=== PATIENT | female | born 1975 | race Caucasian/White ===

== ENCOUNTER 2017-07-20 17:03 | Emergency (ER) | payer OTHER ==
[~2017-07-20] VITALS: Ht 162.6 cm; Wt 127.0 kg
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
[2017-07-20] MEDS: diazePAM 5 MG TABLET PO ONE (17:40)
[2017-07-20] MEDS: KETOROLAC 60 MG/2 ML VIAL. IM ONE (17:41)
[2017-07-20] MEDS: ACETAMINOPHEN 325 MG TABLET PO ONE (17:41)
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
[2017-07-20 18:26] VITALS: BP 131/89
== END 2017-07-20 18:25 | disposition home or self-care (01) ==
LOC: ER 17:03
DX: S16.1XXA Strain of muscle, fascia and tendon at neck level, initial encounter (principal); R51 Headache; E11.9 Type 2 diabetes mellitus without complications; F17.210 Nicotine dependence, cigarettes, uncomplicated; Z88.5 Allergy status to narcotic agent; V49.9XXA Car occupant (driver) (passenger) injured in unspecified traffic accident, initial encounter; Y93.89 Activity, other specified; Y99.8 Other external cause status; Y92.488 Other paved roadways as the place of occurrence of the external cause
CPT/HCPCS: 70450; 72125; 96372; 99284; J1885

== ENCOUNTER 2017-10-07 15:52 | Emergency (ER) | payer OTHER ==
[~2017-10-07] VITALS: Ht 162.6 cm; Wt 127.0 kg
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
[2017-10-07] MEDS ORDERED: IPRATRPIUM/ALBUTEROL 0.5/2.5MG 3 ML NEBU. NEB ONE (16:45)
[2017-10-07] MEDS ORDERED: methylPREDNISolone SOD SUCC PF 125 MG/2 ML VIAL. IV ONE (16:50)
--- NOTE | 2017-10-07 17:03 | EKG ---
[address] [address] Test Date: 2017-10-07 Test Time: 16:21:59 Pat Name: JAMSHID WHITT Department: Room: Gender: F [employer] Assistant: : 1975 Requested By: TIFFANY CORONADO Order Number: [id number] Reading MD: Coy Pickens MD Measurements Intervals [place] Rate: 108 P: 26 [place]: 126 QRS: 10 QRSD: 80 T: 13 QT: 356 QTc: 481 Interpretive Statements SINUS TACHYCARDIA Electronically Signed On 10-08-2017 13:02:50 CDT by Coy Pickens MD
--- NOTE | 2017-10-07 17:10 | RAD ---
Indication: Short of air for one day. Technique: Two-view chest radiograph was obtained. No comparison is available. Findings: The lungs are clear. The cardiopulmonary silhouette is within normal limits. There is no pleural effusion. There are degenerative changes in the spine. Leads overlie the patient. Impression: No active pulmonary disease. Electronically signed by: Hector Oleary MD (10/07/2017 5:07 PM) [facility]
[2017-10-07 17:13] LABS: BASO # 0.1 x10^3/uL (0.0-0.2); BASO % 1 % (0-3); EOS # 0.3 x10^3/uL (0.0-0.7); EOS % 3 % (0-3); HEMATOCRIT 45.2 % (36.0-47.0); LYMPH # 2.4 x10^3/uL (1.0-4.8); LYMPH % 19 % (24-48); MEAN CORPUSCULAR HEMOGLOBIN 29 pg (25-35); MEAN CORPUSCULAR HGB CONC 33 g/dL (31-37); MEAN CORPUSCULAR VOLUME 86 fL (79-100); MONO # 0.7 x10^3/uL (0.0-1.1); MONO % 6 % (0-9); NEUT # 8.9 x10^3uL (1.8-7.7); NEUT % 72 % (31-73); PLATELET COUNT 326 x10^3/uL (140-400); RED BLOOD COUNT 5.25 x10^6/uL (3.50-5.40); RED CELL DISTRIBUTION WIDTH 13.8 % (11.5-14.5); WHITE BLOOD COUNT 12.4 x10^3/uL (4.0-11.0)
[2017-10-07 17:15] LABS: BILIRUBIN,URINE NEG (NEG); CLARITY,URINE CLEAR; COLOR,URINE YELLOW; GLUCOSE,URINE 500 mg/dL (NEG)
[2017-10-07 17:16] LABS: BACTERIA,URINE FEW /HPF (0-FEW); NITRITE,URINE NEG (NEG); RBC,URINE OCC /HPF (0-2); SQUAMOUS EPITHELIAL CELL,UR OCC /LPF; UROBILINOGEN,URINE 0.2 mg/dL (0.2 mg/dL); WBC,URINE OCC /HPF (0-4)
[2017-10-07 17:17] VITALS: BP 111/67
[2017-10-07 17:27] LABS: ALBUMIN 3.6 g/dL (3.4-5.0); ALBUMIN/GLOBULIN RATIO 0.9 (1.0-1.7); CALCIUM 8.8 mg/dL (8.5-10.1); CREATININE 0.7 mg/dL (0.6-1.0); GFR 92.7; TOTAL BILIRUBIN 0.3 mg/dL (0.2-1.0); TOTAL PROTEIN 7.4 g/dL (6.4-8.2)
[2017-10-07] MEDS ORDERED: LORazepam 2 MG/ML VIAL IV ONE (17:45)
[2017-10-07] MEDS ORDERED: ALBU8.5H8 INH (17:58)
[2017-10-07] MEDS ORDERED: AMOX1TAB61 PO (17:58)
[2017-10-07] MEDS ORDERED: METH4TAB2 PO (17:58)
[2017-10-07 18:07] LABS: BARBITURATES NEG (NEG); BENZODIAZEPINES NEG (NEG); CANNABINOIDS NEG (NEG); COCAINE NEG (NEG); METHADONE NEG (NEG); OPIATES NEG (NEG); PHENCYCLIDINE NEG (NEG)
[2017-10-07 18:08] LABS: AMPHETAMINE/METHAMPHETAMINE NEG (NEG)
[2017-10-07] MEDS ORDERED: AMOXICILLIN/K CLAV 875/125MG TABLET. PO ONE (18:15)
== END 2017-10-07 18:05 | disposition home or self-care (01) ==
LOC: ER 15:52
DX: R06.02 Shortness of breath (principal); R53.1 Weakness; E11.9 Type 2 diabetes mellitus without complications; E66.01 Morbid (severe) obesity due to excess calories; F17.210 Nicotine dependence, cigarettes, uncomplicated; Z68.42 Body mass index [BMI] 45.0-49.9, adult; Z88.5 Allergy status to narcotic agent
CPT/HCPCS: 36415; 71046; 80053; 80307; 81001; 81025; 83880; 84484; 85025; 85379; 93005; 94640; 96374; 96375; 99285; J2060; J2930; J7620; G0479

== ENCOUNTER 2019-12-08 02:13 | Emergency (ER) | payer OTHER ==
[~2019-12-08] VITALS: Ht 162.6 cm; Wt 124.2 kg
[~2019-12-08 02:13] MED LIST: ALBU2.5V8 INH; AMOX1TAB61 PO; METH4TAB2 PO
[2019-12-08 02:29] VITALS: BP 137/75
--- NOTE | 2019-12-08 02:54 | PHYS DOC ---
Past History Past Medical History: Diabetes Past Surgical History: Other Additional Past Surgical Histo: right roshan repair, right knee repair Smoking: Cigarettes, Less than 1pk/day Alcohol Use: Rarely Drug Use: None General Adult EDM: Chief Complaint: ALTERED MENTAL STATUS HPI: HPI: 44-year-old female presents via EMS with abdominal pain and vomiting. The patient states that she was "woke up from a deep sleep, went to the bathroom and had diarrhea for an hour straight". She states that the diarrhea is gotten better and the associated abdominal pain has improved. She has mild generalized pain. She states that she feels cold. EMS was told that the called for an ambulance because she was in the bathroom and not responding appropriately. Patient does not have a significant medical history except for diabetes. She denies measured fever. Review of Systems: Review of Systems: Constitutional: Chills Eyes: Denies change in visual acuity HENT: Denies nasal congestion or sore throat Respiratory: Denies cough or shortness of breath Cardiovascular: Denies chest pain or edema GI: Generalized abdominal pain, diarrhea : Denies dysuria Musculoskeletal: Denies back pain or joint pain Integument: Denies rash Neurologic: Denies headache, focal weakness or sensory changes Endocrine: Denies polyuria or polydipsia Lymphatic: Denies swollen glands Psychiatric: Denies depression or anxiety Heart Score: Risk Factors: Risk Factors: DM, Current or recent (<one month) smoker, HTN, HLP, family history of CAD, obesity. Risk Scores: Score 0 - 3: 2.5% MACE over next 6 weeks - Discharge Home Score 4 - 6: 20.3% MACE over next 6 weeks - Admit for Clinical Observation Score 7 - 10: 72.7% MACE over next 6 weeks - Early Invasive Strategies Current Medications: Current Meds: Current Medications Medications (Trade) Dose Ordered Sig/Jono Start Time Stop Time Status Last Admin Dose Admin Sodium Chloride 1,000 ml @ 1,000 mls/hr 1X ONCE 12/08/19 03:00 12/08/19 03:59 UNV Allergies: Allergies: Allergies Coded Allergies Type Severity Reaction Last Updated Verified oxycodone Allergy Unknown 07/20/17 Yes Physical Exam: PE: Constitutional: Well developed, well nourished, morbidly obese, no acute distress, non-toxic appearance. [] HENT: Normocephalic, atraumatic, bilateral external ears normal, oropharynx moist, no oral exudates, nose normal. [] Eyes: PERRLA, EOMI, conjunctiva normal, no discharge. [] Neck: Normal range of motion, no tenderness, supple, no stridor. [] Cardiovascular: Heart rate regular rhythm, no murmur [] Lungs & Thorax: Bilateral breath sounds clear to auscultation [] Abdomen: Bowel sounds normal, soft, no tenderness, no masses, no pulsatile masses. [] Skin: Warm, dry, no erythema, no rash. [] Back: No tenderness, no CVA tenderness. [] Extremities: No tenderness, no cyanosis, no clubbing, ROM intact, no edema. [] Neurologic: Alert and oriented X 3, normal motor function, normal sensory functi on, no focal deficits noted. [] Psychologic: Affect normal, judgement normal, mood normal. [] Current Patient Data: Vital Signs: Vital Signs Date Time Temp Pulse Resp B/P (MAP) Pulse Ox O2 Delivery O2 Flow Rate FiO2 12/08/19 02:29 97.6 113 25 137/75 (95) 97 Room Air EKG: EKG: Sinus tachycardia, rate 112, normal axis, no ST elevations or depressions. [] Radiology/Procedures: Radiology/Procedures: [] Course & Med Decision Making: Course & Med Decision Making Pertinent Labs and Imaging studies reviewed. (See chart for details) The patient's labs are remarkable for an elevated glucose. Her urinalysis is negative for infection but positive for blood and spilling lots of glucose. Her urine drug screen is negative. I believe the patient's symptoms are related to her diabetes and possible vasovagal effects from her bowel movement. I do not see any reason to admit the patient to the hospital. She is at baseline at this time. She is stable for discharge. [] Dragon Disclaimer: Dragon Disclaimer: This electronic medical record was generated, in whole or in part, using a voice recognition dictation system. Departure Departure: Impression: Primary Impression: Morbid obesity Additional Impressions: Diabetes Qualified Codes: E11.9 - Type 2 diabetes mellitus without complications Altered mental status Qualified Codes: R41.0 - Disorientation, unspecified Disposition: HOME/RESIDENCE PRIOR TO ADM Condition: STABLE Referrals: JARED HERRERA (PCP) Patient Instructions: How to Avoid Diabetes Problems, Type 2 Diabetes Mellitus, Adult Justification of Admission: Justification of Admission: Justification of Admission Dx: N/A PAULETTE MARQUIS DO Dec 08, 2019 02:54
[2019-12-08 02:56] LABS: BASO # 0.1 x10^3/uL (0.0-0.2); BASO % 1 % (0-3); EOS # 0.2 x10^3/uL (0.0-0.7); EOS % 1 % (0-3); HEMATOCRIT 46.2 % (36.0-47.0); LYMPH # 2.8 x10^3/uL (1.0-4.8); LYMPH % 24 % (24-48); MEAN CORPUSCULAR HEMOGLOBIN 29 pg (25-35); MEAN CORPUSCULAR HGB CONC 33 g/dL (31-37); MEAN CORPUSCULAR VOLUME 90 fL (79-100); MONO # 0.2 x10^3/uL (0.0-1.1); MONO % 2 % (0-9); NEUT # 8.3 x10^3uL (1.8-7.7); NEUT % 72 % (31-73); PLATELET COUNT 373 x10^3/uL (140-400); RED BLOOD COUNT 5.14 x10^6/uL (3.50-5.40); RED CELL DISTRIBUTION WIDTH 14.2 % (11.5-14.5); WHITE BLOOD COUNT 11.5 x10^3/uL (4.0-11.0)
[2019-12-08] MEDS ORDERED: IV NORMAL SALINE 1,000ML 1,000 ML IV ONE (03:00)
[2019-12-08 03:04] LABS: CALCIUM 8.9 mg/dL (8.5-10.1); CREATININE 1.1 mg/dL (0.6-1.0); GFR 54.5; POTASSIUM 3.5 mmol/L (3.5-5.1)
[2019-12-08 03:09] LABS: ALBUMIN 3.6 g/dL (3.4-5.0); ALBUMIN/GLOBULIN RATIO 0.9 (1.0-1.7); TOTAL BILIRUBIN 0.3 mg/dL (0.2-1.0); TOTAL PROTEIN 7.6 g/dL (6.4-8.2)
[2019-12-08 04:13] LABS: BILIRUBIN,URINE NEG (NEG); CLARITY,URINE HAZY; COLOR,URINE YELLOW; GLUCOSE,URINE >=1000 mg/dL (NEG); NITRITE,URINE NEG (NEG); UROBILINOGEN,URINE 0.2 mg/dL (0.2 mg/dL)
[2019-12-08 04:16] LABS: BACTERIA,URINE 0 /HPF (0-FEW); RBC,URINE >40 /HPF (0-2); SQUAMOUS EPITHELIAL CELL,UR OCC /LPF; WBC,URINE RARE /HPF (0-4)
[2019-12-08 04:17] LABS: BARBITURATES NEG (NEG); BENZODIAZEPINES NEG (NEG); CANNABINOIDS NEG (NEG); COCAINE NEG (NEG); METHADONE NEG (NEG); OPIATES NEG (NEG); PHENCYCLIDINE NEG (NEG)
[2019-12-08 04:37] LABS: AMPHETAMINE/METHAMPHETAMINE NEG (NEG)
--- NOTE | 2019-12-08 08:13 | EKG ---
[address] [address] Test Date: 2019-12-08 Test Time: 02:28:24 Pat Name: JAMSHID HECTOR Department: Room: Gender: F Is Architect: : 1975 Requested By: PAULETET MARQUIS Order Number: [id number] Reading MD: Coy Pickens MD Measurements Intervals [place] Rate: 112 P: -37 [place]: 134 QRS: 38 QRSD: 80 T: 28 QT: 360 QTc: 493 Interpretive Statements SINUS TACHYCARDIA Electronically Signed On 12-08-2019 13:18:45 CDT by Coy Pickens MD
== END 2019-12-08 05:00 | disposition home or self-care (01) ==
LOC: ER 02:13
DX: E66.01 Morbid (severe) obesity due to excess calories (principal); E11.9 Type 2 diabetes mellitus without complications; R41.82 Altered mental status, unspecified; F17.210 Nicotine dependence, cigarettes, uncomplicated; Z68.42 Body mass index [BMI] 45.0-49.9, adult; Z88.5 Allergy status to narcotic agent
CPT/HCPCS: 36415; 80053; 80307; 81001; 85025; 93005; 96360; 99284; J7030